=== PATIENT | male | born 1950 | race Caucasian/White ===

== ENCOUNTER 2017-06-28 17:51 | Emergency (ER) | payer MEDICARE, OTHER ==
[2017-06-28 17:58] VITALS: BMI 25.8
[2017-06-28 18:01] VITALS: RESP 18
[2017-06-28] MEDS ORDERED: Lidocaine 1% w Epi 1:100,000 Inj INJ ONE (18:36)
[2017-06-28] MEDS ORDERED: Bacitracin 500 Units/gm Oint Foilpak UD TOP ONE (18:36)
[2017-06-28] MEDS ORDERED: Bacitracin 500 Units/gm Oint Foilpak UD ONE ×2 (18:49→20:09)
[2017-06-28] MEDS ORDERED: Lidocaine 2% Inj (20ml) ONE (19:29)
--- NOTE | 2017-06-28 20:13 | C.PDOC ---
History Of Present Illness Patient is a 66 y/o male who presents to the ED with complaints of lacerations to the right hand. Patient states he was pushing open a door and the glass broke , cutting his hand. Denies any change in sensation or SI. No change in sensation. Time Seen by Provider: 06/28/17 18:22 Chief Complaint (Nursing): Abnormal Skin Integrity History Per: Patient History/Exam Limitations: no limitations Onset/Duration Of Symptoms: Hrs Current Symptoms Are (Timing): Still Present Recent travel outside of the [place]: No Additional History Per: Patient Past Medical History Reviewed: Historical Data, Nursing Documentation, Vital Signs Vital Signs: Last Vital Signs Temp 97.7 F 06/28/17 20:46 Pulse 66 06/28/17 20:46 Resp 18 06/28/17 20:46 BP 114/75 06/28/17 20:46 Pulse Ox 100 06/28/17 21:57 - Medical History PMH: HTN, Hypercholesterolemia Surgical History: CABG (1977) Family History: States: Unknown Family Hx - Social History Hx Alcohol Use: No Hx Substance Use: No - Immunization History Hx Tetanus Toxoid Vaccination: No Hx Influenza Vaccination: No Hx Pneumococcal Vaccination: No Review Of Systems Skin: Positive for: Other (lacerations to the right hand) Neurological: Negative for: Numbness Psych: Negative for: Suicidal ideation Physical Exam - Physical Exam Appears: Well, Non-toxic, No Acute Distress Skin: Warm, Other (two < 0.5cm avulsion on second and third fingers of right hand; 0.5cm laceration ot first digit of right hand; 3.5cm laceration to right anterior wrist.) Head: Atraumatic, Normacephalic Eye(s): bilateral: Normal Inspection, EOMI Nose: Normal Oral Mucosa: Moist Chest: Symmetrical Cardiovascular: Rhythm Regular, No Murmur Respiratory: Normal Breath Sounds, No Accessory Muscle Use, No Rales, No Rhonchi , No Wheezing Extremity: Normal ROM, Capillary Refill (< 2 sec) Pulses: Left Radial: Normal, Right Radial: Normal Neurological/Psych: Oriented x3, Normal Speech, Normal Cognition, Normal Motor ( 5/5 against resistance), Normal Sensation ED Course And Treatment O2 Sat by Pulse Oximetry: 100 - Other Rad Right Hand X-Ray: Interpreted by Me, Viewed By Me Interpretation: No acute findings. Right wrist X-Ray: Interpreted by Me, Viewed By Me Interpretation: No acute findings. Progress Note: Plan: Bacitracin and Adacel adminsitered; Right hand XRay and Right wrist XRay ordered. All wounds copiously irrigated. dsicsused wound care and wound check in 2 days. Laceration - Laceration Repair first digit of right hand Wound Length (In cm): 0.5cm Description Of Wound: Irregular Wound Cleansed With: Betadine, Sterile Saline Wound Examination: Irrigated With Saline, No FB With Wound Exploration, No Tendon Injury With Wound Exploration Wound Closure: Skin Glue right anterior wrist Wound Length (In cm): 3.5 Description Of Wound: Irregular Wound Cleansed With: Betadine, Sterile Saline Anesthesia: Lidocaine 2% Wound Examination: Irrigated With Saline, No FB With Wound Exploration, No Tendon Injury With Wound Exploration Wound Closure: Suture (6 sutures) Suture Technique And Material Used: Nylon Disposition - Disposition Disposition: HOME/ ROUTINE Disposition Time: 20:29 Condition: STABLE Additional Instructions: Wound check. Keep area clean and dry. May wash gently with soap and water after 3 days. Change dressing 1-2 times daily. Return to ER if fever occurs, redness or swelling around wound, pus in the wound. Please follow up with your primary doctor, clinic, or urgent care for suture removal in 10- 14 days. Skin glue was used to close your wound, do not apply ointment to area as it may dissolve glue. Glue patch will gradually fall off in few days. Prescriptions: Cephalexin [cephalexin] 500 mg PO BID 7 Days cap Mupirocin 2% Ointment [Bactroban Ointment] 1 appl TP TID #1 tube Instructions: Laceration (ED) Forms: [employer] ([place] Zealander) - Clinical Impression Clinical Impression: Laceration of right hand - Scribe Statement The provider has reviewed the documentation as recorded by the Scribe Margaret Sharpe All medical record entries made by the Scribe were at my direction and personally dictated by me. I have reviewed the chart and agree that the record accurately reflects my personal performance of the history, physical exam, medical decision making, and the department course for this patient. I have also personally directed, reviewed, and agree with the discharge instructions and disposition.
[2017-06-28 20:47] VITALS: BP 114/75; PULSE 66; TEMP 97.7
[2017-06-28 21:50] VITALS: O2SAT 100
--- NOTE | 2017-06-29 08:56 | RAD ---
PROCEDURE: Right Hand Radiographs. HISTORY: trauma COMPARISON: None. FINDINGS: BONES: Normal. No fracture. JOINTS: Arthritic degenerative changes are noted more prominent at the distal interphalangeal joints. SOFT TISSUES: Mild soft tissue swelling. OTHER FINDINGS: None. IMPRESSION: No evidence of acute fracture or dislocation. Arthritic degenerative changes. Mild soft tissue swelling.
--- NOTE | 2017-06-29 08:59 | RAD ---
PROCEDURE: Right Wrist Radiographs. HISTORY: trauma COMPARISON: None. FINDINGS: BONES: No evidence of acute fracture JOINTS: Normal. No dislocation. SOFT TISSUES: Normal. OTHER FINDINGS: None. IMPRESSION: No evidence of acute fracture or dislocation.
== END 2017-06-28 20:47 | disposition home or self-care (01) ==
LOC: C.ER 17:51
DX: S61.411A Laceration without foreign body of right hand, initial encounter (principal); W25.XXXA Contact with sharp glass, initial encounter; Z23 Encounter for immunization

== ENCOUNTER 2018-12-02 10:40 | Outpatient (CLI) | payer MEDICARE, OTHER | END 2018-12-02 10:41 | disposition home or self-care (01) | LOC: C.DEXAIC 10:40 | DX: M81.0 Age-related osteoporosis without current pathological fracture (principal) ==

== ENCOUNTER 2018-12-07 10:37 | Emergency (ER) | payer MEDICARE, OTHER ==
[2018-12-07 10:38] VITALS: BMI 25.8
[2018-12-07 10:49] VITALS: BP 130/78; PULSE 64; RESP 18; TEMP 98.2; O2SAT 98
--- NOTE | 2018-12-07 12:25 | RAD ---
Date of service: 12/07/2018 PROCEDURE: Radiographs of the Left Shoulder HISTORY: LEFT SHOULDER PAIN COMPARISON: No prior. FINDINGS: BONES: Normal. No fracture. JOINTS: There is slight widening of the left acromioclavicular joint.. Minor degenerative osteoarthritis left glenohumeral joint. SOFT TISSUES: Normal. OTHER FINDINGS: None. IMPRESSION: No acute fractures. Slight widening of the left acromioclavicular joint. Mild degenerative osteoarthritis left glenohumeral joint.
[2018-12-07] MEDS ORDERED: Lidocaine 5% Patch TD STA (12:28)
[2018-12-07] MEDS ORDERED: Lidocaine 5% Patch TD ONE (12:37)
--- NOTE | 2018-12-07 12:37 | C.PDOC ---
History Of Present Illness 68 y/o male presents to the ED for evaluation of left shoulder pain, ongoing for over 1 month. Patient has a history of chronic neck and shoulder pain, for which he had surgery in the past. He notes that over 1 month ago, he slipped and fell into a wall with the left shoulder and has been having pain there since. Patient follows with pain management, where he receives pain injections and Percocet. He has not yet seen orthopedics. Time Seen by Provider: 12/07/18 10:59 Chief Complaint (Nursing): Upper Extremity Problem/Injury History Per: Patient History/Exam Limitations: no limitations Onset/Duration Of Symptoms: Days Current Symptoms Are (Timing): Still Present Past Medical History Reviewed: Historical Data, Nursing Documentation, Vital Signs Vital Signs: Last Vital Signs Temp 98.2 F 12/07/18 10:46 Pulse 64 12/07/18 10:46 Resp 18 12/07/18 10:46 BP 130/78 12/07/18 10:46 Pulse Ox 98 12/07/18 10:46 - Medical History PMH: HTN, Hypercholesterolemia, Chronic Pain Surgical History: CABG (1977) Family History: States: Unknown Family Hx - Social History Hx Alcohol Use: No Hx Substance Use: No - Immunization History Hx Tetanus Toxoid Vaccination: No Hx Influenza Vaccination: No Hx Pneumococcal Vaccination: Yes Review Of Systems Constitutional: Negative for: Fever, Chills Cardiovascular: Negative for: Chest Pain Respiratory: Negative for: Shortness of Breath Musculoskeletal: Positive for: Shoulder Pain Skin: Negative for: Rash Neurological: Negative for: Weakness, Numbness, Incoordination Physical Exam - Physical Exam Appears: Non-toxic, In Acute Distress (Mild painful distress) Skin: Normal Color, Warm, Dry Head: Atraumatic, Normacephalic Eye(s): bilateral: Normal Inspection, PERRL, EOMI Neck: Normal ROM Chest: Symmetrical, No Tenderness Cardiovascular: Rhythm Regular, No Murmur Respiratory: Normal Breath Sounds, No Accessory Muscle Use Extremity: Tenderness (at anterior left shoulder, worsening pain with abduction of the shoulder), Capillary Refill (< 2 sec), No Deformity, No Swelling (or erythema) Pulses: Left Radial: Normal, Right Radial: Normal Neurological/Psych: Oriented x3, Normal Motor, Normal Sensation ED Course And Treatment O2 Sat by Pulse Oximetry: 98 (RA) Pulse Ox Interpretation: Normal - Other Rad Shoulder XR X-Ray: Read By Radiologist Interpretation: Accession No. : [id number]. Patient Name / ID : [id number] Buck / [id number]. Exam Date : 12/07/2018 11:40:58 ( Approved ). Study Comment : Sex / Age : M / 68Y. Creator : Kip Calderón MD. Dictator : Kip Calderón MD. Sexton Helper : [employer] Supervisor : Kip Calderón MD. Approver2 : Report Date : 12/07/2018 12:22:22. My Comment : . Date of service: 12/07/2018. PROCEDURE: Radiographs of the Left Shoulder. HISTORY: LEFT SHOULDER PAIN. COMPARISON: No prior. FINDINGS: BONES: Normal. No fracture. JOINTS: There is slight widening of the left acromioclavicular joint.. Minor degenerative osteoarthritis left glenohumeral joint. SOFT TISSUES: Normal. OTHER FINDINGS: None. IMPRESSION: No acute fractures. Slight widening of the left acromioclavicular joint. Mild degenerat tom osteoarthritis left glenohumeral joint. Progress Note: Lidoderm patch x 1 applied. X-ray taken of left shoulder, showing no acute findings. Patient counseled regarding findings and diagnosis. Will discharge patient home with muscle relaxant and pain meds. Advised to follow up with orthopedist for further management. Disposition - Disposition Referrals: Abelino Oh MD [Staff Provider] - Disposition: HOME/ ROUTINE Disposition Time: 12:35 Condition: STABLE Additional Instructions: FOLLOW UP WITH ORTHOPEDICS WITHIN 1 WEEK USE MEDICATIONS NEEDED FOR PAIN RETURN TO ER IF SYMPTOMS WORSEN Prescriptions: RX: Cyclobenzaprine [Flexeril] 10 mg PO BID PRN #15 tab PRN Reason: Muscle Spasm Lidocaine 5% [Lidoderm] 1 patch TOP DAILY PRN #10 patch PRN Reason: pain RX: Naproxen 375 mg PO BID PRN #20 tablet PRN Reason: pain Instructions: Shoulder Pain (DC) Forms: [facility] (Greenlandic) Print Language: MAORI - Clinical Impression Clinical Impression: Sprain of shoulder, left, Osteoarthritis - Scribe Statement The provider has reviewed the documentation as recorded by the Odin Matthew Provider Attestation: All medical record entries made by the Odin were at my direction and person ally dictated by me. I have reviewed the chart and agree that the record accurately reflects my personal performance of the history, physical exam, medical decision making, and the department course for this patient. I have also personally directed, reviewed, and agree with the discharge instructions and disposition.
== END 2018-12-07 13:13 | disposition home or self-care (01) ==
LOC: C.ER 10:37
DX: S43.402A Unspecified sprain of left shoulder joint, initial encounter (principal); W01.0XXA Fall on same level from slipping, tripping and stumbling without subsequent striking against object, initial encounter; M19.012 Primary osteoarthritis, left shoulder